=== PATIENT | female | born 1970 | race Caucasian/White ===

== ENCOUNTER 2024-06-25 08:55 | Outpatient (CLI) | payer OTHER ==
[2024-06-25 11:27] LABS: #Basophils 0.05 10x3/uL (0.0-0.2); %Basophils 0.7 % (0.0-1.0); %Eosinophils 1.8 % (0.0-10.0); %Lymphocytes 24.8 % (21.0-51.0); %Monocytes 6.5 % (0.0-10.0); %Neutrophils 65.9 % (42.0-75.0); Hematocrit 41.6 % (36.0-47.0); Hemoglobin 13.4 g/dL (12.0-16.0); Mean Corpuscular HGB CONC 32.2 g/dL (32.0-36.0); Mean Corpuscular Hemoglobin 26.8 pg (27.0-31.0); Mean Corpuscular Volume 83.2 fL (78.0-98.0); Mean Platelet Volume 12.2 fL (7.4-10.4); Platelet Count 241 10x3/uL (130-400); RBC Distribution Width 14.4 % (11.5-14.5)
[2024-06-25 12:13] LABS: BHCG - Serum Negative (NEGATIVE); Pregs Control Background? CLEAR/WHITE (CLR/WHITE); Pregs Control Bar Appear? YES (CONTROL BAR)
[2024-06-25 12:59] LABS: Anion Gap 15 mmol/L (10-20); BUN (Urea Nitrogen) 11 mg/dL (9.8-20.1); Calc. Creatinine Clearance 0 mL/min (70-130); Calcium 9.6 mg/dL (7.8-10.44); Carbon Dioxide 20 mmol/L (22-29); Chloride 107 mmol/L (98-107); Estimated GFR 103; Glucose 143 mg/dL (70-105); Potassium 3.7 mmol/L (3.5-5.1); Sodium 138 mmol/L (136-145)
== END 2024-06-25 08:56 | disposition home or self-care (01) ==
LOC: LABBT 08:55
PROVIDERS: ATTEND Orthopaedic Surgery Hand Surgery
DX: Z01.818 Encounter for other preprocedural examination (principal); M65.332 Trigger finger, left middle finger
CPT/HCPCS: 80048; 84703; 85025; 93005; 93010

== ENCOUNTER 2024-06-28 05:47 | Day surgery (SDC) | payer OTHER ==
[2024-06-25 09:14] VITALS: BMI 39.6
[2024-06-28] MEDS ORDERED: Bupivacaine PF 0.5% 30 ML VIAL ONE (06:38)
[2024-06-28] MEDS ORDERED: EPINEPHrine 1 MG/ML VIAL ONE (06:38)
[2024-06-28] MEDS ORDERED: Bacitracin Zinc Ointment 30 gm TUBE ONE (06:38)
[2024-06-28] MEDS ORDERED: CEFAZOLIN 2 GM VIAL ONE (06:42)
[2024-06-28] MEDS ORDERED: PROPOFOL 20 ML ONE (07:03)
[2024-06-28] MEDS ORDERED: fentaNYL 50 mcg/mL 1 mL Vial ONE (07:03)
[2024-06-28] MEDS ORDERED: Lidocaine 2% PF 100 mg/5 ml Syringe ONE (07:03)
[2024-06-28] MEDS ORDERED: Midazolam HCl 2 mg/2 ml Vial ONE (07:04)
[2024-06-28] MEDS ORDERED: Dexamethasone 20 MG/5 ML VIAL ONE (07:28)
[2024-06-28] MEDS ORDERED: PHENYLEPHRINE-NS 100 MCG/ML 10 ML SYRINGE ONE (07:28)
[2024-06-28] MEDS ORDERED: Ondansetron PF 4 MG/2 ML Vial ONE (07:28)
[2024-06-28] MEDS ORDERED: Ketorolac Tromethamine 30 MG (1 mL) VIAL ONE (07:54)
== END 2024-06-28 09:13 | disposition home or self-care (01) ==
LOC: SDC 05:47
PROVIDERS: ATTEND Orthopaedic Surgery Hand Surgery
PROC: 0LN80ZZ Release Left Hand Tendon, Open Approach (ICD-10-PCS; principal; 2024-06-28)
DX: M65.332 Trigger finger, left middle finger (principal); I10 Essential (primary) hypertension; E11.9 Type 2 diabetes mellitus without complications; E78.5 Hyperlipidemia, unspecified; E03.9 Hypothyroidism, unspecified; Z87.59 Personal history of other complications of pregnancy, childbirth and the puerperium; Z91.014 Allergy to mammalian meats
CPT/HCPCS: 36416; A6223; J0171; J0665; J1100; J1885; J2003; J2250; J2405; J2704; J3010

== ENCOUNTER 2024-08-09 08:18 | Outpatient (CLI) | payer OTHER | END 2024-08-09 08:19 | disposition home or self-care (01) | LOC: BICRAD 08:18 | PROVIDERS: ATTEND Family Medicine | DX: Z11.1 Encounter for screening for respiratory tuberculosis (principal) | CPT/HCPCS: 71046 ==